=== PATIENT | male | born 1985 | race Caucasian/White ===

== ENCOUNTER 2025-07-30 10:50 | Emergency (ER) | payer OTHER ==
[~2025-07-30] VITALS: Ht 170.2 cm; Wt 91.0 kg
[2025-07-30 11:19] LABS: BASOPHILS % 0.6 % (0.0-2.0); EOSINOPHILS % 0.3 % (0.0-5.0); HEMATOCRIT. 46.8 % (42.0-52.0); HEMOGLOBIN. 15.8 g/dL (14.0-18.0); LYMPHOCYTES % 25.2 % (20.0-50.0); MEAN PLATELET VOLUME 7.4 fl (7.4-10.4); MONOCYTES % 9.8 % (2.0-8.0); NEUTROPHILS % 64.1 % (40.0-76.0); PLATELET 289 x1000/uL (130-400); RED BLOOD CELL COUNT 5.17 mill/uL (4.7-6.1); RED CELL DISTRIBUTION WIDTH 13.4 % (11.6-14.6)
[2025-07-30 11:34] LABS: CREATININE 1.2 mg/dL (0.6-1.3); UREA NITROGEN BLOOD 11 mg/dL (9-23)
[2025-07-30 11:35] LABS: TROPONIN I HIGH SENSITIVITY < 4 ng/L (3.0-53)
[2025-07-30] MEDS: IPRATROPIUM/ALBUTEROL 0.5-3(2.5)MG/3ML NEB HHN ONE (12:18)
[2025-07-30 12:20] VITALS: PULSE 116; RESP 15; O2SAT 97
[2025-07-30 14:06] VITALS: BP 130/81; PULSE 99; RESP 16; TEMP 37.8; O2SAT 98
== END 2025-07-30 14:07 | disposition home or self-care (01) ==
LOC: ER 10:50
DX: J42 Unspecified chronic bronchitis (principal); Z79.899 Other long term (current) drug therapy
CPT/HCPCS: 80048; 85025; 84484; 36415; 71045; 94640; 93005; 99285; Z7610 ×3; 94070; 94664